=== PATIENT | female | born 1935 | race Caucasian/White ===

== ENCOUNTER → 2018-04-27 | Day surgery (SDC) | payer OTHER, MEDICARE ==
[~2018-04-27] VITALS: Ht 154.9 cm; Wt 84.4 kg
[~2018-04-27] MED LIST: ALBUTEROL 3 ML3 ML INH; ALBUTEROL0.09 MG/A1 INH; ASPIRIN EC81 M1 PO; ATORVASTATIN CA20 MG PO; ATORVASTATIN CA40 MG PO; AUGMENTIN 875-1 EACH PO; AUGMENTIN 875875 MG PO; AVAPRO 150MG150 MG PO; AVAPRO150 M1 PO; FERROUS SULFAT325 M1 PO; FLOVENT HF0.22 MG/Ac INH; FUROSEMIDE20 MG PO; IPRAT-ALBUT 0.5-3 ML INH; IRON SUPPLEMEN325 MG PO; LEVOTHYROXIN0.075 MG PO; LEVOXYL100 MCG PO; LIPITOR20 M2 PO; MEDROL4 M2 PO; PREDNISONE10 MG PO; TOPROL XL25 M1 PO; TOPROL XL25 MG PO; Theragran Vitamins PO
--- NOTE | 2018-04-27 12:51 | Operative Report ---
Operative/Inv Procedure Report Surgery Date: 04/27/18 Name of Procedure: Cataract extraction with intraocular lens implantation right eye Pre-Operative Diagnosis: Age-related cataract right eye Post-Operative Diagnosis: Same Estimated Blood Loss: none Surgeon/Forge Operator Helper: Mark Gaspar MD Anesthesia: local monitored anesthesi Complications: None Operative/Procedure Note Note: Preoperatively the patient was noted to have 20/40 vision in the right eye with a decrease with glare testing down to 20/60. The risks, benefits, and alternatives to surgery were discussed at length with the patient. Informed consent was obtained. Orientation hodges were placed on the eye in the preoperative area. The patient was brought to the operating room where the right eye was prepped and draped in the normal sterile fashion. A speculum was placed on the right eye with good exposure. The axis was marked at 87. A stab incision was made using a paracentesis blade. Intracameral lidocaine was placed. Viscoelastic was used to form the anterior chamber. A clear corneal incision was made using keratome blade. A continuous curvilinear capsulorrhexis was made using a cystotome needle followed by Utrata forceps. There was no extension of the rhexis. Hydrodissection was performed using balanced salt solution. The cataract was removed using a stop and chop technique. Residual cortex was removed using coaxial irrigation and aspiration. The capsule was polished using irrigation and aspiration and the posterior capsule was cleaned using a balanced salt solution jet. There was no residual lens material inside the eye. The capsular bag was reformed using viscoelastic. An intraocular lens [id number] of power 15.5 was verified and confirmed. He was loaded into an injector and injected into the eye. The lens was placed entirely within the capsular bag. Viscoelastic was evacuated using irrigation and aspiration. The intraocular lens was rotated and placed in its proper axis orientation. The wounds were stromally hydrated and the eye filled to physiologic pressure using balanced salt solution. Intracameral cefuroxime was placed. Speculum was removed and a shield was placed on the eye. The patient was brought to the recovery area without incident. Instructions were given to follow-up the next day for routine postoperative care.
== END ==
LOC: STS 01:57
DX: H25.9 Unspecified age-related cataract (principal); I10 Essential (primary) hypertension; I25.10 Atherosclerotic heart disease of native coronary artery without angina pectoris; Z95.5 Presence of coronary angioplasty implant and graft; I25.2 Old myocardial infarction; J45.909 Unspecified asthma, uncomplicated; E07.9 Disorder of thyroid, unspecified
CPT/HCPCS: J2250; V2632; V2787-GY

== ENCOUNTER → 2018-05-25 | Day surgery (SDC) | payer OTHER, MEDICARE ==
[~2018-05-25] VITALS: Ht 154.9 cm; Wt 84.4 kg
--- NOTE | 2018-05-25 13:24 | Operative Report ---
Operative/Inv Procedure Report Surgery Date: 05/25/18 Name of Procedure: Cataract extraction with intraocular lens implantation left eye Pre-Operative Diagnosis: Age-related cataract left eye Post-Operative Diagnosis: Same Estimated Blood Loss: none Surgeon/Casting And Locker Room Servicer: Mark Gaspar MD Anesthesia: local monitored anesthesi Complications: None Operative/Procedure Note Note: Preoperatively the patient was noted to have 20/60 vision in the left eye . The risks, benefits, and alternatives to surgery were discussed at length with the patient. Informed consent was obtained. Orientation hodges were placed on the eye in the preoperative area. The patient was brought to the operating room where the left eye was prepped and draped in the normal sterile fashion. A speculum was placed on the left eye with good exposure. The axis was marked at 95. A stab incision was made using a paracentesis blade. Intracameral lidocaine was placed. Viscoelastic was used to form the anterior chamber. A clear corneal incision was made using keratome blade. A continuous curvilinear capsulorrhexis was made using a cystotome needle followed by Utrata forceps. There was no extension of the rhexis. Hydrodissection was performed using balanced salt solution. The cataract was removed using a stop and chop technique. Residual cortex was removed using coaxial irrigation and aspiration. The capsule was polished using irrigation and aspiration and the posterior capsule was cleaned using a balanced salt solution jet. There was no residual lens material inside the eye. The capsular bag was reformed using viscoelastic. An intraocular lens ZCT 150 of power 18.0 was verified and confirmed. He was loaded into an injector and injected into the eye. The lens was placed entirely within the capsular bag. Viscoelastic was evacuated using irrigation and aspiration. The intraocular lens was rotated and placed in its proper axis orientation. The wounds were stromally hydrated and the eye filled to physiologic pressure using balanced salt solution. Intracameral cefuroxime was placed. Speculum was removed and a shield was placed on the eye. The patient was brought to the recovery area without incident. Instructions were given to follow-up the next day for routine postoperative care.
== END ==
LOC: STS 02:37
DX: H25.9 Unspecified age-related cataract (principal); I10 Essential (primary) hypertension; E07.9 Disorder of thyroid, unspecified; J45.909 Unspecified asthma, uncomplicated; Z79.82 Long term (current) use of aspirin
CPT/HCPCS: J2250; V2632; V2787-GY